=== PATIENT | female | born 1950 | race Caucasian/White ===

== ENCOUNTER → 2016-06-28 | Outpatient (CLI) | payer OTHER ==
[~2016-06-28] VITALS: Ht 165.1 cm; Wt 61.2 kg
[~2016-06-28] MED LIST: AMLO5TAB2 PO; LATA5OPD OU; LIDOCAINE 2% INJ 100 MG/5 ML SDV (FOR ANES.) As Ordered ONE; NS 1,000 ML IV SCH; OMEG100011 PO; PROPOFOL 200 MG/20 ML VIAL As Ordered ONE
--- NOTE | 2016-06-28 11:46 | ROOR ---
Patient Name: Rachna Zavala Procedure Date: 06/28/2016 11:36 AM Date of : 1950 Age: 65 Room: [facility] Gender: Female Note Status: Finalized Procedure: Upper GI endoscopy Indications: Epigastric abdominal pain Providers: Cesar Dumont MD Referring MD: CLEMENTE WADE JR, MD Requesting Provider: Medicines: Monitored Anesthesia Care Complications: No immediate complications. Procedure: Pre-Anesthesia Assessment: - The heart rate, respiratory rate, oxygen saturations, blood pressure, adequacy of pulmonary ventilation, and response to care were monitored throughout the procedure. The Endoscope was introduced through the mouth, and advanced to the second part of duodenum. The upper GI endoscopy was accomplished without difficulty. The patient tolerated the procedure well. Findings: The Z-line was regular and was found 40 cm from the incisors. No other significant abnormalities were identified in a careful examination of the stomach. The exam of the duodenum was otherwise normal. Impression: - Z-line regular, 40 cm from the incisors. - No specimens collected. - The examination was otherwise normal. Recommendation: - Patient has a contact number available for emergencies. The signs and symptoms of potential delayed complications were discussed with the patient. Return to normal activities tomorrow. Written discharge instructions were provided to the patient. - Resume previous diet. - Discharge patient to home. - Follow an antireflux regimen. - Continue present medications. - Return to referring physician. - The findings and recommendations were discussed with the patient's family. Cesar Dumont MD Cesar Dumont MD 06/28/2016 11:46:01 AM This report has been signed electronically. Number of Addenda: 0 Note Initiated On: 06/28/2016 11:36 AM Estimated Blood Loss: Estimated blood loss: none.
--- NOTE | 2016-06-28 12:28 | ROOR ---
Patient Name: Rachna Zavala Procedure Date: 06/28/2016 11:36 AM Date of : 1950 Age: 65 Room: [facility] Gender: Female Note Status: Finalized Procedure: Colonoscopy to Cecum + Hot Snare Polypectomy + Hemoclips Indications: Screening for colorectal malignant neoplasm Providers: Cesar Dumont MD Referring MD: CLEMENTE WADE JR, MD Requesting Provider: Medicines: Monitored Anesthesia Care Complications: No immediate complications. Procedure: Pre-Anesthesia Assessment: - The heart rate, respiratory rate, oxygen saturations, blood pressure, adequacy of pulmonary ventilation, and response to care were monitored throughout the procedure. The Colonoscope was introduced through the anus and advanced to the cecum, identified by appendiceal orifice and ileocecal valve. The colonoscopy was performed without difficulty. The patient tolerated the procedure well. The quality of the bowel preparation was good. Findings: The perianal and digital rectal examinations were normal. Non-bleeding internal hemorrhoids were found during retroflexion. The hemorrhoids were small and Grade I (internal hemorrhoids that do not prolapse). Scattered small-mouthed diverticula were found in the recto-sigmoid colon, sigmoid colon and descending colon. A medium polyp was found at 40 cm proximal to the anus. The polyp was sessile. The polyp was removed with a hot snare. Resection and retrieval were complete. To prevent bleeding after the polypectomy, one hemostatic clip was successfully placed (MR conditional). There was no bleeding at the end of the procedure. A medium polyp was found at 20 cm proximal to the anus. The polyp was sessile. The polyp was removed with a hot snare. Resection and retrieval were complete. To prevent bleeding after the polypectomy, one hemostatic clip was successfully placed (MR conditional). There was no bleeding at the end of the procedure. A small polyp was found at 10 cm proximal to the anus. The polyp was sessile. The polyp was removed with a jumbo cold forceps. Resection and retrieval were complete. A large polyp was found in the rectum. The polyp was semi-sessile. The polyp was removed with a hot snare. Resection and retrieval were complete. To prevent bleeding after the polypectomy, one hemostatic clip was successfully placed (MR conditional). There was no bleeding at the end of the procedure. The exam was otherwise without abnormality on direct and retroflexion views. Impression: - Non-bleeding internal hemorrhoids. - Diverticulosis in the recto-sigmoid colon, in the sigmoid colon and in the descending colon. - One medium polyp at 40 cm proximal to the anus, removed with a hot snare. Resected and retrieved. Clip (MR conditional) was placed. - One medium polyp at 20 cm proximal to the anus, removed with a hot snare. Resected and retrieved. Clip (MR conditional) was placed. - One small polyp at 10 cm proximal to the anus, removed with a jumbo cold forceps. Resected and retrieved. - One large polyp in the rectum, removed with a hot snare. Resected and retrieved. Clip (MR conditional) was placed. - The examination was otherwise normal on direct and retroflexion views. - The exam was otherwise normal to the cecum. Recommendation: - Patient has a contact number available for emergencies. The signs and symptoms of potential delayed complications were discussed with the patient. Return to normal activities tomorrow. Written discharge instructions were provided to the patient. - High fiber diet. - Discharge patient to home. - Continue present medications. - Await pathology results. - Telephone GI clinic for pathology results in 1 week. - Repeat colonoscopy for surveillance based on pathology results. - Check Portal Online for Path Results.([email or web address]) Cesar Dumont MD Cesar Dumont MD 06/28/2016 12:27:32 PM This report has been signed electronically. Number of Addenda: 0 Note Initiated On: 06/28/2016 11:36 AM Estimated Blood Loss: Estimated blood loss: none.
[2016-06-28 12:40] VITALS: BP 119/65
== END | disposition home or self-care (01) ==
LOC: M OPP 10:13
PROVIDERS: ATTEND Internal Medicine Gastroenterology
DX: Z12.11 Encounter for screening for malignant neoplasm of colon (principal); Z64.0 Problems related to unwanted pregnancy; K57.30 Diverticulosis of large intestine without perforation or abscess without bleeding; D12.5 Benign neoplasm of sigmoid colon; K62.1 Rectal polyp; K63.5 Polyp of colon; R10.13 Epigastric pain; I10 Essential (primary) hypertension; Z79.899 Other long term (current) drug therapy; F17.210 Nicotine dependence, cigarettes, uncomplicated

== ENCOUNTER → 2016-07-01 | Outpatient (CLI) | payer OTHER ==
[~2016-07-01] MED LIST changes: -LIDOCAINE 2% INJ 100 MG/5 ML SDV (FOR ANES.) As Ordered ONE; -NS 1,000 ML IV SCH; -PROPOFOL 200 MG/20 ML VIAL As Ordered ONE
--- NOTE | 2016-07-02 05:19 | REP ---
Clinical: Follow up abnormal findings. Comparison: 01/06/2016, 05/12/2015, 01/14/2015. Findings: The bilateral lung teixeira are relatively well aerated, symmetric and essentially clear. No acute consolidation, nodule or mass lesion is appreciated. Small focal areas of scarring identified in the right apex and along the subpleural periphery of the right lower lobe are unchanged compared to 01/14/2015. No pleural effusion or pneumothorax. No adenopathy. Thoracic aorta without aneurysm. Heart and pericardium relatively normal. Impression: Minimal chronic scattered changes related to scarring. Findings are stable compared to 01/14/2015. No new acute significant mediastinal or pleuroparenchymal process. Signed by Kiran Soliman MD 07/02/2016 05:10 A
== END ==
LOC: M RAD 07:42
PROVIDERS: ATTEND Internal Medicine Pulmonary Disease
DX: R91.8 Other nonspecific abnormal finding of lung field (principal)

== ENCOUNTER 2017-09-07 08:48 | Day surgery (SDC) | payer MEDICARE, OTHER ==
[~2017-09-07 08:48] MED LIST changes: -AMLO5TAB2 PO; -LATA5OPD OU; -OMEG100011 PO; +PROPOFOL 200 MG/20 ML VIAL As Ordered
[2017-09-07] MEDS: NS 1,000 ML IV (09:31)
== END 2017-09-07 11:28 | disposition home or self-care (01) ==
LOC: M OPP 08:48
DX: Z12.11 Encounter for screening for malignant neoplasm of colon (principal); K64.0 First degree hemorrhoids; K57.30 Diverticulosis of large intestine without perforation or abscess without bleeding; Z86.010 Personal history of colon polyps; I10 Essential (primary) hypertension; M12.9 Arthropathy, unspecified; G25.0 Essential tremor; F17.210 Nicotine dependence, cigarettes, uncomplicated; Z79.899 Other long term (current) drug therapy
CPT/HCPCS: G0105

== ENCOUNTER → 2017-12-29 | Outpatient (CLI) | payer MEDICARE, OTHER | LOC: M RAD 10:24 | DX: R91.8 Other nonspecific abnormal finding of lung field (principal); F17.210 Nicotine dependence, cigarettes, uncomplicated | CPT/HCPCS: G0297 ==

== ENCOUNTER → 2019-01-02 | Outpatient (CLI) | payer MEDICARE, OTHER ==
[~2019-01-02] MED LIST changes: +AMLO5TAB6 PO; +LATA0.0013 OU; +LUTE20CA PO; +OMEG100011 PO; -PROPOFOL 200 MG/20 ML VIAL As Ordered
--- NOTE | 2019-01-02 13:41 | REP ---
Low-dose lung screening CT of the chest: The study is performed without IV contrast. The images are presented at lung windowing seen prior studies are chest CTs dated 12/29/2017, 05/12/2015 and 01/14/2015. There is a new 3 mm lung nodule in the left lower lobe on image 42, not present on the comparison studies. This is a category 2 lung lesion with probability of malignancy less than 1%. No other new lung nodules or masses are identified. There are no infiltrates or pleural effusions. There is a stable small focal parenchymal scar in the right upper lobe apex posteriorly on image 14, unchanged from all prior studies. There is a stable 2 mm nodule in the right upper lobe on image 42, unchanged from all prior studies. Impression: Category 2 low-dose lung screening chest CT. The probability of malignancy is less than 1%. Depending on risk factors consider follow-up annual low-dose lung screening chest CT. Electronically Signed by Alfonzo Holloway MD 01/02/2019 01:32 P
== END ==
LOC: M RAD 09:57
PROVIDERS: ATTEND Internal Medicine Pulmonary Disease
DX: F17.210 Nicotine dependence, cigarettes, uncomplicated (principal); R91.8 Other nonspecific abnormal finding of lung field

== ENCOUNTER → 2020-01-08 | Outpatient (CLI) | payer MEDICARE, OTHER ==
[~2020-01-08] MED LIST changes: +AMLO1TAB24 PO; -AMLO5TAB6 PO
--- NOTE | 2020-01-08 13:38 | REP ---
INDICATION: COPD. Current smoker, 50 pack years. COMPARISON: 01/02/2019, 12/29/2017. TECHNIQUE: A screening low-dose lung CT protocol FINDINGS: The previous 3 mm nodule in the superior segment left lower lobe is no longer present. There is a stable of 3 mm nodule in the right mid lung seen on image 41. Some parenchymal scarring in the posterior right apex is stable as well there is mild cylindrical bronchiectatic change bilaterally. There is a 4.8 mm nodule the medial basal segment left lower lobe on image 78. On previous study image 79 it appears as a non solid focus. It was the same size. No pleural thickening, pleural based mass or calcification, effusion, acute infiltrate or pneumothorax no other significant findings IMPRESSION: : 1. There is a new 4.8 mm solid-appearing nodule medial basal segment left lower lobe on image 78 this was previously only visualized as a non solid finding adjacent to some scarring from the adjacent pleura. It is in fact today subpleural nodule 2. A 3 mm nodule on the previous study superior segment left lower lobe is resolved. 3. Few other scattered small pleural and subpleural nodules are as described. 4. Lung-RADS category 3 probably benign. Probably benign finding. Short-term follow-up suggested. A new nodule in the 4-6 mm range warrants further consideration with a 6 month follow-up low-dose CT. Patients with this category findings have 1-2% probability of malignancy at the time of the examination. <Electronically signed by Michoacano Lagos > 01/08/20 [id number]
== END ==
LOC: M RAD 13:06
PROVIDERS: ATTEND Internal Medicine Pulmonary Disease
DX: R91.8 Other nonspecific abnormal finding of lung field (principal); F17.210 Nicotine dependence, cigarettes, uncomplicated; J44.9 Chronic obstructive pulmonary disease, unspecified; Z12.2 Encounter for screening for malignant neoplasm of respiratory organs

== ENCOUNTER → 2020-04-23 | Outpatient (CLI) | payer MEDICARE, OTHER ==
[~2020-04-23] MED LIST changes: +ISOVUE-370 76% 100ML VIAL As Ordered ONE
--- NOTE | 2020-04-23 16:05 | REP ---
INDICATION: SOB, HYPOXEMIA. COMPARISON: Comparison chest CT study January 08, 2020.. TECHNIQUE: Contrast dose: 75 ML of Isovue [address] technique: Helical scanning is acquired and overlapping 1.5 mm and contiguous 3 mm axial images are reformatted. In addition, maximum intensity projection and multiplanar re-formation images are generated in sagittal and coronal imaging projections. FINDINGS: There is good opacification in the pulmonary arterial tree. There is no evidence of vessel cut off or filling defect to suggest pulmonary embolus. Homogeneous opacity is seen in the thoracic aorta. There is no evidence of aneurysm or dissection. Lung window settings demonstrate no evidence of infiltrate mass or effusion. There are scattered subcentimeter stable noncalcified pulmonary nodules unchanged from December 22, [address] study. No pleural or pericardial effusion is seen. In the upper abdomen, normal adrenal glands are seen. The visualized upper abdominal structures are unremarkable. No bony abnormality is seen. IMPRESSION: No CT evidence of pulmonary embolus. No active cardiopulmonary disease seen. <Electronically signed by Kelvin Vinson > 04/23/20 [id number]
== END ==
LOC: M RAD 15:21
PROVIDERS: ATTEND Internal Medicine
DX: R06.02 Shortness of breath (principal); R09.02 Hypoxemia
CPT/HCPCS: 71275; Q9967

== ENCOUNTER → 2021-05-19 | Outpatient (CLI) | payer MEDICARE, OTHER ==
[~2021-05-19] MED LIST changes: -ISOVUE-370 76% 100ML VIAL As Ordered ONE
== END ==
LOC: M RAD 10:07
PROVIDERS: ATTEND Internal Medicine Pulmonary Disease
DX: Z12.2 Encounter for screening for malignant neoplasm of respiratory organs (principal); F17.210 Nicotine dependence, cigarettes, uncomplicated; J44.9 Chronic obstructive pulmonary disease, unspecified; R91.8 Other nonspecific abnormal finding of lung field

== ENCOUNTER → 2021-12-22 | Outpatient (CLI) | payer MEDICARE, OTHER | LOC: M WHC 12:50 | PROVIDERS: ATTEND Internal Medicine | DX: Z12.31 Encounter for screening mammogram for malignant neoplasm of breast (principal) ==

== ENCOUNTER → 2022-07-12 | Outpatient (CLI) | payer MEDICARE, OTHER | LOC: M RAD 09:36 | PROVIDERS: ATTEND Internal Medicine Pulmonary Disease | DX: F17.210 Nicotine dependence, cigarettes, uncomplicated (principal); R91.1 Solitary pulmonary nodule; J94.9 Pleural condition, unspecified ==

== ENCOUNTER 2023-05-18 09:35 | Day surgery (SDC) | payer MEDICARE, OTHER ==
[~2023-05-18] VITALS: Ht 165.1 cm; Wt 60.1 kg
[~2023-05-18 09:35] MED LIST changes: +BRIN15DR; +LATA1DRO; +VITA100093 PO
[2023-05-18] MEDS: NS 1,000 ML IV ONE (09:53)
[2023-05-18 12:31] VITALS: BP 130/60; TEMP 97; O2SAT 98
== END 2023-05-18 12:34 | disposition home or self-care (01) ==
LOC: M OPP 09:35
PROVIDERS: ATTEND Internal Medicine Gastroenterology
DX: Z12.11 Encounter for screening for malignant neoplasm of colon (principal); Z86.010 Personal history of colon polyps; K63.5 Polyp of colon; K64.0 First degree hemorrhoids; K57.30 Diverticulosis of large intestine without perforation or abscess without bleeding; F17.200 Nicotine dependence, unspecified, uncomplicated; Z79.899 Other long term (current) drug therapy

== ENCOUNTER → 2023-08-11 | Outpatient (CLI) | payer MEDICARE, OTHER | LOC: M RAD 09:39 | PROVIDERS: ATTEND Internal Medicine Pulmonary Disease | DX: Z12.2 Encounter for screening for malignant neoplasm of respiratory organs (principal); F17.218 Nicotine dependence, cigarettes, with other nicotine-induced disorders; R91.1 Solitary pulmonary nodule; J98.4 Other disorders of lung ==

== ENCOUNTER → 2023-12-16 | Outpatient (REF) | payer MEDICARE, OTHER ==
[2023-12-16 14:58] LABS: FOLATE 11.1 NG/ML (>5.4)
== END ==
LOC: M LAB REF 11:53
PROVIDERS: ATTEND Internal Medicine
DX: I12.9 Hypertensive chronic kidney disease with stage 1 through stage 4 chronic kidney disease, or unspecified chronic kidney disease (principal); G62.9 Polyneuropathy, unspecified

== ENCOUNTER → 2024-05-25 | Outpatient (CLI) | payer MEDICARE, OTHER ==
[~2024-05-25] MED LIST changes: -BRIN15DR; +BRIN15DR5
== END ==
LOC: M WHC 10:18
PROVIDERS: ATTEND Internal Medicine
DX: Z12.31 Encounter for screening mammogram for malignant neoplasm of breast (principal); Z13.820 Encounter for screening for osteoporosis; M85.851 Other specified disorders of bone density and structure, right thigh; M85.852 Other specified disorders of bone density and structure, left thigh

== ENCOUNTER → 2024-07-06 | Outpatient (CLI) | payer MEDICARE, OTHER | LOC: M RAD 14:34 | PROVIDERS: ATTEND Physician Assistant | DX: R06.02 Shortness of breath (principal) ==

== ENCOUNTER → 2024-10-17 | Outpatient (CLI) | payer MEDICARE, OTHER | LOC: M RAD 09:33 | PROVIDERS: ATTEND Internal Medicine Pulmonary Disease | DX: Z12.2 Encounter for screening for malignant neoplasm of respiratory organs (principal); R91.8 Other nonspecific abnormal finding of lung field; F17.218 Nicotine dependence, cigarettes, with other nicotine-induced disorders ==

== ENCOUNTER → 2024-12-05 | Outpatient (REF) | payer MEDICARE, OTHER ==
[2024-12-07 16:02] LABS: VITAMIN B12 LEVEL 394.0 PG/ML (211-911)
== END ==
LOC: M LAB REF 13:50
PROVIDERS: ATTEND Internal Medicine
DX: G60.9 Hereditary and idiopathic neuropathy, unspecified (principal)